=== PATIENT | female | born 1980 | race Caucasian/White ===

== ENCOUNTER 2019-05-03 15:48 | Inpatient (IN) | payer OTHER, MEDICAID ==
[~2019-05-03] VITALS: Ht 144.8 cm; Wt 70.8 kg
[2019-05-03] MEDS ORDERED: DEXT 5%/LR + PITOCIN 20UNITS/L 1,000 ML IV SCH (17:00)
[2019-05-03] MEDS ORDERED: LIDOCAINE HCL 1% 20ML VIAL (Pyxis) INJ INFIL SCH (17:00)
[2019-05-03] MEDS ORDERED: BUTORPHANOL TARTRATE 2 MG/ML VIAL IV PRN (17:00)
[2019-05-03] MEDS ORDERED: METHYLERGONOVINE MALEATE 0.2 MG/ML IM PRN (17:00)
[2019-05-03] MEDS ORDERED: CARBOPROST TROMETHAMINE 250 MCG/ML AMPUL IM PRN (17:00)
[2019-05-03] MEDS: LACTATED RINGERS 1,000 ML IV SCH ×3 (17:30→22:49)
[2019-05-03 18:08] LABS: BASOPHILS % 0.5 % (0.0-2.0); EOSINOPHILS % 0.3 % (0.0-5.0); HEMATOCRIT. 36.7 % (36.0-48.0); HEMOGLOBIN. 12.5 g/dL (12.0-16.0); LYMPHOCYTES % 19.4 % (20.0-50.0); MEAN CORPUSCULAR HEMOGLOBIN 29.3 pg (28.0-32.0); MEAN CORPUSCULAR VOLUME 86.2 fL (81.0-99.0); MEAN PLATELET VOLUME 9.9 fl (7.4-10.4); MONOCYTES % 7.3 % (2.0-8.0); NEUTROPHILS % 72.5 % (40.0-76.0); PLATELET 289 x1000/uL (130-400); RED BLOOD CELL COUNT 4.26 mill/uL (4.2-5.4); RED CELL DISTRIBUTION WIDTH 14.2 % (11.6-14.6)
[2019-05-03 18:11] LABS: INR 0.9; PARTIAL THROMBOPLASTIN TIME 29.9 sec (23.4-31.0); PROTHROMBIN TIME 9.4 sec (9.6-11.0)
[2019-05-03 18:21] LABS: CLARITY URINE CLOUDY (CLEAR); COLOR URINE YELLOW (YELLOW); KETONES URINE NEGATIVE (NEGATIVE); LEUKOCYTE ESTERASE URINE 2+ (NEGATIVE); NITRITE URINE NEGATIVE (NEGATIVE); OCCULT BLOOD URINE 3+ (NEGATIVE); PH URINE 6.5 (4.5-8.0); PROTEIN URINE TRACE (NEGATIVE); SPECIFIC GRAVITY URINE 1.019 (1.005-1.030); UROBILINOGEN URINE 0.2 E.U./dL (0.2-1.0)
[2019-05-03 18:38] LABS: *AMPHETAMINES SCREEN URINE NEGATIVE (NEGATIVE); *BARBITURATES SCREEN URINE NEGATIVE (NEGATIVE); *BENZODIAZEPINES SCREEN URINE NEGATIVE (NEGATIVE); *COCAINE SCREEN URINE NEGATIVE (NEGATIVE)
[2019-05-03 18:39] LABS: CANNABINOID URINE SCREEN NEGATIVE (NEGATIVE); METHADONE URINE SCREEN NEGATIVE (NEGATIVE); OPIATES URINE SCREEN NEGATIVE (NEGATIVE); PHENCYCLIDINE URINE SCREEN NEGATIVE (NEGATIVE)
[2019-05-03 19:01] LABS: HEPATITIS B SURFACE ANTIGEN NEGATIVE
[2019-05-03] MEDS ORDERED: PNV1TABL76 MT (19:33)
[2019-05-04] MEDS ORDERED: RHO(D) IMMUNE GLOBULIN 300 MCG/SYR IM PRN (01:30)
[2019-05-04] MEDS ORDERED: BENZOCAINE/LANOLIN/ALOE VERA SPRAY TOP PRN (01:30)
[2019-05-04] MEDS ORDERED: GLYCERIN/WITCH HAZEL LEAF MEDICATED PAD TOP PRN (01:30)
[2019-05-04] MEDS ORDERED: HEMORRHOIDAL SUPP PR PRN (01:30)
[2019-05-04] MEDS ORDERED: BISACODYL 10MG SUPP PR PRN (01:30)
[2019-05-04] MEDS ORDERED: IBUPROFEN 400MG TABLET PO PRN (01:30)
[2019-05-04] MEDS ORDERED: LANOLIN OINT 7GM TUBE TOP PRN (01:30)
[2019-05-04] MEDS ORDERED: ACETAMINOPHEN WITH CODEINE 300/30MG TABLET PO PRN ×2 (01:30)
[2019-05-04] MEDS: DEXT 5%/LR + PITOCIN 20UNITS/L 1,000 ML IV SCH ×2 (02:15→02:45)
[2019-05-04] MEDS: LACTATED RINGERS 1,000 ML IV SCH (02:23)
[2019-05-04] MEDS: GUAIFENESIN 200MG TABLET PO PRN ×3 (02:45→21:13)
[2019-05-04 03:00] VITALS: BP 132/64
[2019-05-04 08:00] VITALS: BP 113/62
[2019-05-04] MEDS: SIMETHICONE 80MG TABLET CHEW PO SCH ×3 (08:40→17:54)
[2019-05-04] MEDS: MAGNESIUM/ALUMINUM HYDROXIDE/SIMETHICONE 30ML UDC PO SCH ×3 (08:40→17:54)
[2019-05-04] MEDS: PRENATAL VIT/FE FUMARATE/FA TABLET PO SCH (08:40)
[2019-05-04 16:00] VITALS: BP 119/69
[2019-05-04 20:00] VITALS: BP 113/75
[2019-05-04] MEDS ORDERED: DOCUSATE SODIUM 100MG CAPSULE PO SCH (21:00)
[2019-05-05] MEDS: GUAIFENESIN 200MG TABLET PO PRN ×2 (02:06→06:04)
[2019-05-05 04:00] VITALS: BP 100/54
[2019-05-05 06:40] LABS: BASOPHILS % 0.2 % (0.0-2.0); EOSINOPHILS % 0.9 % (0.0-5.0); HEMATOCRIT. 34.9 % (36.0-48.0); LYMPHOCYTES % 21.8 % (20.0-50.0); MEAN CORPUSCULAR HEMOGLOBIN 29.6 pg (28.0-32.0); MEAN CORPUSCULAR VOLUME 86.3 fL (81.0-99.0); MONOCYTES % 6.1 % (2.0-8.0); PLATELET 241 x1000/uL (130-400); RED BLOOD CELL COUNT 4.04 mill/uL (4.2-5.4); RED CELL DISTRIBUTION WIDTH 14.1 % (11.6-14.6)
[2019-05-05 07:30] VITALS: BP 106/63
[2019-05-05] MEDS ORDERED: FERROUS SULFATE 325MG TABLET PO SCH (07:30)
[2019-05-05] MEDS: MAGNESIUM/ALUMINUM HYDROXIDE/SIMETHICONE 30ML UDC PO SCH (07:30)
[2019-05-05] MEDS ORDERED: IBUP-2029 MT (07:48)
[2019-05-05] MEDS ORDERED: FERR325T6 MT (07:48)
[2019-05-05] MEDS ORDERED: MULT1TAB67 MT (07:48)
[2019-05-05] MEDS: SIMETHICONE 80MG TABLET CHEW PO SCH (08:00)
[2019-05-05] MEDS: PRENATAL VIT/FE FUMARATE/FA TABLET PO SCH (08:59)
== END 2019-05-05 10:45 | disposition home or self-care (01) | DRG 560 ==
LOC: 8 EST LDRP 15:48 → OBSVTOIN 15:48 → 8EST 05-04 03:00
PROVIDERS: ADMIT Obstetrics & Gynecology; ATTEND Obstetrics & Gynecology
PROC: 10E0XZZ Delivery of Products of Conception, External Approach (ICD-10-PCS; principal; 2019-05-04)
DX: O80 Encounter for full-term uncomplicated delivery (principal); Z37.0 Single live birth; Z3A.39 39 weeks gestation of pregnancy
CPT/HCPCS: 36415; 80305; 81003; 85025; 86592; 86703; 86762; 86850; 86900; 87340; 99281; J0595; J2590; J3490; J7120